=== PATIENT | female | born 1995 | race Caucasian/White ===

== ENCOUNTER 2020-08-03 07:58 | Inpatient (IN) | payer BC, OTHER ==
[~2020-08-03 07:58] MED LIST: Lidocaine 1.5% with EPINEPHrine 1:200,000 5 ML Amp ONE
[2020-08-03] MEDS: Lactated Ringers 1,000 ML IV SCH ×2 (08:17→15:05)
[2020-08-03] MEDS ORDERED: Sodium Chloride 0.9% 10 ML Syringe FLUSH PRN (08:24)
[2020-08-03] MEDS ORDERED: Nalbuphine 10 MG/1 ML Vial IVPUSH PRN (08:24)
[2020-08-03] MEDS ORDERED: Lidocaine 1% 50 ML MDV INJECT ONE (08:24)
[2020-08-03] MEDS ORDERED: Oxytocin/Lactated Ringers 10 UNIT/1,000 ML BAG IV SCH ×2 (08:30)
[2020-08-03] MEDS ORDERED: fentaNYL 100 MCG/2 ML SDV EPIDUR PRN (12:02)
[2020-08-03] MEDS ORDERED: ePHEDrine 50 MG/ML SDV IVPUSH PRN (12:02)
[2020-08-03] MEDS ORDERED: Bupivacaine/fentaNYL/NS 100 ML Bag EPIDUR PRN (12:02)
[2020-08-03] MEDS ORDERED: diphenhydrAMINE 50 MG/ML SDV IVPUSH PRN (12:02)
--- NOTE | 2020-08-03 12:27 | PCM.LDHP ---
L&D History of Present Illness - General Date of Service: 08/03/20 Admit Problem/Dx: Patient Status Order with Admit Dx/Problem 08/03/20 08:26 Patient Status [ADT] Routine Admission Diagnosis/Problem Admission Diagnosis/Problem Source of Information: Patient History Limitations: Reports: No Limitations - History of Present Illness Introduction:: Patient is a 24 y/o at 37 0/7 wks who presents for IOL for preeclampsia. Doing well since seen in clinic. No headaches, vision changes, etc. - Related Data Allergies/Adverse Reactions: Allergies Allergy/AdvReac Type Severity Reaction Status Date / Time No Known Allergies Allergy Verified 08/03/20 08:21 Home Medications: Home Meds 105/Iron/Folic AC/Dha [Prena1 True Combo Pack] 1 each PO DAILY 08/03/20 [History] Past Medical History - Past Health History Medical/Surgical History: Denies Medical/Surgical History [employer] History: Reports: : 1 Para: 0 LMP (Approximate): Social & Family History - Family History Family Medical History: Unobtainable - Tobacco Use Tobacco Use Status *Q: Never Tobacco User - Alcohol Use Alcohol Use History: No - Recreational Drug Use Recreational Drug Use: No H&P Review of Systems - Review of Systems: Review Of Systems: See Below General: Reports: No Symptoms Pulmonary: Reports: No Symptoms Cardiovascular: Reports: No Symptoms Gastrointestinal: Reports: No Symptoms Genitourinary: Reports: No Symptoms Musculoskeletal: Reports: No Symptoms Psychiatric: Reports: No Symptoms Neurological: Reports: No Symptoms L&D Exam - Exam Exam: See Below - Vital Signs Vital Signs: Last Vital Signs Temp 36.5 C 08/03/20 08:00 Pulse 57 L 08/03/20 08:00 Resp 16 08/03/20 08:00 BP 150/98 H 08/03/20 08:00 Pulse Ox 98 08/03/20 08:00 Weight: 70.67 kg - OB Specific Contraction Intensity: Irritability Movement: Active Heart Tones: Present Heart Tones per Min: 140 Heart Rate (FHR) Variability: Moderate (6-25 bmp) Presentation: Vertex - Zuniga Score Zuniga Score Cervix Position: Posterior Zuniga Score Consistency: Soft Zuniga Score Effacement: 51-70% Zuniga Score Dilation: 1-2 cm (2-3 cm) Zuniga Score 's Station: -2 Zuniga Score Total: 6 - Exam General: Alert, Oriented, Cooperative Lungs: Clear to Auscultation, Normal Respiratory Effort Cardiovascular: Regular Rate, Regular Rhythm GI/Abdominal Exam: Soft, Non-Tender Genitourinary: Normal external exam Extremities: Normal Inspection Skin: Warm, Dry, Intact - Patient Data Lab Results Last 24 hrs: Laboratory Results - last 24 hr 08/03/20 08/03/20 08/03/20 Range/Units 07:53 08:41 08:41 WBC 4.82 (3.98-10.04) K/mm3 RBC 3.71 L (3.98-5.22) M/mm3 Hgb 10.7 L (11.2-15.7) gm/dl Hct 33.5 L (34.1-44.9) % MCV 90.3 (79.4-94.8) fl MCH 28.8 (25.6-32.2) pg MCHC 31.9 L (32.2-35.5) g/dl RDW Std Deviation 41.3 (36.4-46.3) fL Plt Count 173 L (182-369) K/mm3 MPV 12.1 (9.4-12.3) fl Neut % (Auto) 63.3 (34.0-71.1) % Lymph % (Auto) 26.6 (19.3-51.7) % [place] % (Auto) 8.9 (4.7-12.5) % Eos % (Auto) 0.8 (0.7-5.8) Baso % (Auto) 0.4 (0.1-1.2) % Neut # (Auto) 3.05 (1.56-6.13) K/mm3 Lymph # (Auto) 1.28 (1.18-3.74) K/mm3 [place] # (Auto) 0.43 H (0.24-0.36) K/mm3 Eos # (Auto) 0.04 (0.04-0.36) K/mm3 Baso # (Auto) 0.02 (0.01-0.08) K/mm3 Creatinine (0.55-1.02) mg/dL Est Cr Clr Drug Dosing mL/min Estimated GFR (MDRD) (>60) mL/min AST (15-37) U/L ALT (14-59) U/L Ur Random Creatinine (30.0-125.0) mg/dL U Random Total Protein (0.0-11.8) mg/dL Protein/Creatinin Ratio (0-149) mg/g SARS-CoV-2 RNA (RICCO) Negative (NEGATIVE) Blood Type A POSITIVE Gel Antibody Screen Negative 08/03/20 08/03/20 08/03/20 Range/Units 08:41 08:41 10:00 WBC (3.98-10.04) K/mm3 RBC (3.98-5.22) M/mm3 Hgb (11.2-15.7) gm/dl Hct (34.1-44.9) % MCV (79.4-94.8) fl MCH (25.6-32.2) pg MCHC (32.2-35.5) g/dl RDW Std Deviation (36.4-46.3) fL Plt Count (182-369) K/mm3 MPV (9.4-12.3) fl Neut % (Auto) (34.0-71.1) % Lymph % (Auto) (19.3-51.7) % [place] % (Auto) (4.7-12.5) % Eos % (Auto) (0.7-5.8) Baso % (Auto) (0.1-1.2) % Neut # (Auto) (1.56-6.13) K/mm3 Lymph # (Auto) (1.18-3.74) K/mm3 [place] # (Auto) (0.24-0.36) K/mm3 Eos # (Auto) (0.04-0.36) K/mm3 Baso # (Auto) (0.01-0.08) K/mm3 Creatinine 0.6 (0.55-1.02) mg/dL Est Cr Clr Drug Dosing 141.81 mL/min Estimated GFR (MDRD) > 60 (>60) mL/min AST 19 (15-37) U/L ALT 21 (14-59) U/L Ur Random Creatinine 136.9 H (30.0-125.0) mg/dL U Random Total Protein 38.0 H (0.0-11.8) mg/dL Protein/Creatinin Ratio 277.6 H (0-149) mg/g SARS-CoV-2 RNA (RICCO) (NEGATIVE) Blood Type Gel Antibody Screen Result Diagrams: 08/03/20 08:41 08/03/20 08:41 - Problem List (1) 37 weeks gestation of SNOMED Code(s): 12067652 ICD Code: Z3A.37 - 37 WEEKS GESTATION OF Status: Acute Current Visit: Yes (2) Preeclampsia SNOMED Code(s): 989067692 ICD Code: O14.90 - UNSPECIFIED PRE-ECLAMPSIA, UNSPECIFIED TRIMESTER Status: Acute Current Visit: Yes Qualifiers: Trimester: third trimester Qualified Code(s): O14.93 - Unspecified pre- eclampsia, third trimester Problem List Initiated/Reviewed/Updated: Yes Orders Last 24hrs: Active Orders 24 hr Category Date Time Status Patient Status [ADT] Routine ADT 08/03/20 08:26 Active Activity as Tolerated [RC] PFP Care 08/03/20 08:25 Active Communication Order [RC] ASDIRECTED Care 08/03/20 08:25 Active Communication Order [RC] ASDIRECTED Care 08/03/20 12:03 Active Cooling Warming Measures [RC] ASDIRECTED Care 08/03/20 12:03 Active Non Stress Test [RC] PER UNIT ROUTINE Care 08/03/20 08:25 Active Notify Provider [RC] ASDIRECTED Care 08/03/20 12:02 Active Notify Provider [RC] ASDIRECTED Care 08/03/20 12:03 Active Notify Provider [RC] PFP Care 08/03/20 08:25 Active Notify Provider [RC] PRN Care 08/03/20 08:25 Active Oxygen Therapy [RC] ASDIRECTED Care 08/03/20 12:03 Active Peripheral IV Care [RC] . DIRECTED Care 08/03/20 08:26 Active Pulse Oximetry [RC] ASDIRECTED Care 08/03/20 12:03 Active Pump Management, Intrathecal [RC] ASDIRECTED Care 08/03/20 08:29 Active Urinary Catheter Assessment [RC] ASDIRECTED Care 08/03/20 08:24 Active Vital Signs [RC] PER UNIT ROUTINE Care 08/03/20 08:25 Active Vital Signs [RC] Q1H Care 08/03/20 12:03 Active Regular Diet [DIET] Diet 08/03/20 Breakfast Active HEP C VIRUS AB [REF] Stat Lab 08/03/20 08:41 Received PATIENT RETYPE [BBK] Routine Lab 08/03/20 09:40 Ordered RAPID PLASMA REAGIN,RPR [CHEM] Routine Lab 08/03/20 08:41 Received Bupivacaine/fentaNYL/NS [fentaNYL/Bupivacaine/NS 2 MCG- Med 08/03/20 12:02 Active 0.125% 100 ML] 100 ml EPIDUR ASDIRECTED PRN Lactated Ringers [Ringers, Lactated] 1,000 ml Med 08/03/20 08:30 Active IV ASDIRECTED Nalbuphine [Nubain] Med 08/03/20 08:24 Active 10 mg IVPUSH Q2H PRN Oxytocin/Lactated Ringers [Pitocin in LR 10 Units/1,000 Med 08/03/20 08:30 Active ML] 10 unit in 1,000 ml IV .CONTINUOUS Oxytocin/Lactated Ringers [Pitocin in LR 10 Units/1,000 Med 08/03/20 08:30 Active ML] 10 unit in 1,000 ml IV TITRATE Sodium Chloride 0.9% [Saline Flush] Med 08/03/20 08:24 Active 10 ml FLUSH ASDIRECTED PRN diphenhydrAMINE [Benadryl] Med 08/03/20 12:02 Active 25 mg IVPUSH Q6H PRN ePHEDrine [ePHEDrine sulfate] Med 08/03/20 12:02 Active 5 mg IVPUSH ASDIRECTED PRN fentaNYL [Sublimaze] Med 08/03/20 12:02 Active 100 mcg EPIDUR Q3H PRN Electronic Heart Tones Ext w TOCO [WOMSER] Oth 08/03/20 08:25 Ordered Routine Electronic Heart Tones Internal [WOMSER] Per Unit Oth 08/03/20 08:25 Ordered Routine Peripheral IV Insertion Adult [OM.PC] Routine Oth 08/03/20 08:25 Ordered Resuscitation Status Routine Resus Stat 08/03/20 08:24 Ordered Medication Orders Diphenhydramine HCl (Diphenhydramine 50 Mg/Ml Sdv) 25 mg IVPUSH Q6H PRN PRN Reason: pruritis Ephedrine Sulfate (Ephedrine 50 Mg/Ml Sdv) 5 mg IVPUSH ASDIRECTED PRN PRN Reason: Hypotension Fentanyl (Fentanyl 100 Mcg/2 Ml Sdv) 100 mcg EPIDUR Q3H PRN PRN Reason: Pain Fentanyl/Bupivacaine HCl (Bupivacaine/Fentanyl/Ns 100 Ml Bag) 100 ml EPIDUR ASDIRECTED PRN PRN Reason: Pain Oxytocin/Lactated Ringer's (Pitocin In Lr 10 Units/1,000 Ml) 10 unit in 1,000 mls @ 100 mls/hr IV .CONTINUOUS HANNAH Oxytocin/Lactated Ringer's (Pitocin In Lr 10 Units/1,000 Ml) 10 unit in 1,000 mls @ 12 mls/hr IV TITRATE HANNAH; Protocol Last Titration: 08/03/20 11:05 Dose: 10 munits/min, 60 mls/hr Documented by: Titration: 08/03/20 10:30 Dose: 8 munits/min, 48 mls/hr Documented by: Titration: 08/03/20 10:00 Dose: 6 munits/min, 36 mls/hr Documented by: Titration: 08/03/20 08:52 Dose: 4 munits/min, 24 mls/hr Documented by: Admin: 08/03/20 08:17 Dose: 2 munits/min, 12 mls/hr Documented by: BRENDA Lactated Ringer's (Ringers, Lactated) 1,000 mls @ 100 mls/hr IV ASDIRECTED HANNAH Last Admin: 08/03/20 08:17 Dose: 100 mls/hr Documented by: BRENDA Nalbuphine HCl (Nalbuphine 10 Mg/1 Ml Vial) 10 mg IVPUSH Q2H PRN PRN Reason: Pain Sodium Chloride (Sodium Chloride 0.9% 10 Ml Syringe) 10 ml FLUSH ASDIRECTED PRN PRN Reason: Keep Vein Open Assessment/Plan Comment:: * Labs to be done * GBS negative * Pitocin and AROM for IOL * Pain management per patient preference * Anticipate
--- NOTE | 2020-08-03 12:28 | PCM.PNLD ---
Labor Progress Note - VS & Meds Vital Signs: Last Vital Signs Temp 36.5 C 08/03/20 08:00 Pulse 57 L 08/03/20 08:00 Resp 16 08/03/20 08:00 BP 150/98 H 08/03/20 08:00 Pulse Ox 98 08/03/20 08:00 Active Medications: Current Medications Diphenhydramine HCl (Diphenhydramine 50 Mg/Ml Sdv) 25 mg IVPUSH Q6H PRN PRN Reason: pruritis Ephedrine Sulfate (Ephedrine 50 Mg/Ml Sdv) 5 mg IVPUSH ASDIRECTED PRN PRN Reason: Hypotension Fentanyl (Fentanyl 100 Mcg/2 Ml Sdv) 100 mcg EPIDUR Q3H PRN PRN Reason: Pain Fentanyl/Bupivacaine HCl (Bupivacaine/Fentanyl/Ns 100 Ml Bag) 100 ml EPIDUR ASDIRECTED PRN PRN Reason: Pain Oxytocin/Lactated Ringer's (Pitocin In Lr 10 Units/1,000 Ml) 10 unit in 1,000 mls @ 100 mls/hr IV .CONTINUOUS HANNAH Oxytocin/Lactated Ringer's (Pitocin In Lr 10 Units/1,000 Ml) 10 unit in 1,000 mls @ 12 mls/hr IV TITRATE HANNAH; Protocol Last Titration: 08/03/20 11:05 Dose: 10 munits/min, 60 mls/hr Documented by: Lactated Ringer's (Ringers, Lactated) 1,000 mls @ 100 mls/hr IV ASDIRECTED HANNAH Last Admin: 08/03/20 08:17 Dose: 100 mls/hr Documented by: Nalbuphine HCl (Nalbuphine 10 Mg/1 Ml Vial) 10 mg IVPUSH Q2H PRN PRN Reason: Pain Sodium Chloride (Sodium Chloride 0.9% 10 Ml Syringe) 10 ml FLUSH ASDIRECTED PRN PRN Reason: Keep Vein Open Discontinued Medications Lidocaine HCl (Lidocaine 1% 50 Ml Mdv) 50 ml INJECT ONETIME ONE Stop: 08/03/20 08:25 - Uterine Contractions Uterine Monitoring Mode: External Blairs Contraction Intensity: Moderate Uterine Resting Tone: Soft - Monitoring Monitor Mode: External Ultrasound Heart Rate (FHR) Baseline: 140 Heart Rate (FHR) Variability: Moderate (6-25 bmp) Accelerations: Present, 15x15 Decelerations: None Strip Review: Category I - Vaginal Exam Dilation (cm): 3-4 Effacement (Percent): 75 Station: -1 Cervical Position: Posterior - Labor Progress (Free Text) Labor Progress: Doing well. Pitocin at 10. AROM performed. BP's mild range. Doing well otherwise
--- NOTE | 2020-08-03 13:39 | PCM.PREANE ---
Preanesthetic Assessment - Procedure Proposed Procedure: Continuous labor epidural - Anesthesia/Transfusion/Family Hx Anesthesia History: No Prior Anesthesia Transfusion History: No Prior Transfusion(s) - Review of Systems General: No Symptoms Pulmonary: No Symptoms Cardiovascular: No Symptoms Gastrointestinal: No Symptoms Neurological: No Symptoms Other: Reports: None - Physical Assessment Vital Signs: Last Vital Signs Temp 97.7 F 08/03/20 08:00 Pulse 57 L 08/03/20 08:00 Resp 16 08/03/20 08:00 BP 150/98 H 08/03/20 08:00 Pulse Ox 98 08/03/20 08:00 Height: 1.7 m Weight: 70.67 kg ASA Class: 2 Mental Status: Alert & Oriented x3 Airway Class: Mallampati = 1 Dentition: Reports: Normal Dentition Thyro-Mental Finger Breadths: 3 Mouth Opening Finger Breadths: 3 ROM/Head Extension: Full Lungs: Clear to Auscultation, Normal Respiratory Effort Cardiovascular: Regular Rate, Regular Rhythm - Lab Values: Laboratory Last Values WBC 4.82 K/mm3 (3.98-10.04) 08/03/20 08:41 RBC 3.71 M/mm3 (3.98-5.22) L 08/03/20 08:41 Hgb 10.7 gm/dl (11.2-15.7) L 08/03/20 08:41 Hct 33.5 % (34.1-44.9) L 08/03/20 08:41 MCV 90.3 fl (79.4-94.8) 08/03/20 08:41 MCH 28.8 pg (25.6-32.2) 08/03/20 08:41 MCHC 31.9 g/dl (32.2-35.5) L 08/03/20 08:41 RDW Std Deviation 41.3 fL (36.4-46.3) 08/03/20 08:41 Plt Count 173 K/mm3 (182-369) L 08/03/20 08:41 MPV 12.1 fl (9.4-12.3) 08/03/20 08:41 Neut % (Auto) 63.3 % (34.0-71.1) 08/03/20 08:41 Lymph % (Auto) 26.6 % (19.3-51.7) 08/03/20 08:41 [place] % (Auto) 8.9 % (4.7-12.5) 08/03/20 08:41 Eos % (Auto) 0.8 (0.7-5.8) 08/03/20 08:41 Baso % (Auto) 0.4 % (0.1-1.2) 08/03/20 08:41 Neut # (Auto) 3.05 K/mm3 (1.56-6.13) 08/03/20 08:41 Lymph # (Auto) 1.28 K/mm3 (1.18-3.74) 08/03/20 08:41 [place] # (Auto) 0.43 K/mm3 (0.24-0.36) H 08/03/20 08:41 Eos # (Auto) 0.04 K/mm3 (0.04-0.36) 08/03/20 08:41 Baso # (Auto) 0.02 K/mm3 (0.01-0.08) 08/03/20 08:41 Creatinine 0.6 mg/dL (0.55-1.02) 08/03/20 08:41 Est Cr Clr Drug Dosing 141.81 mL/min 08/03/20 08:41 Estimated GFR (MDRD) > 60 mL/min (>60) 08/03/20 08:41 AST 19 U/L (15-37) 08/03/20 08:41 ALT 21 U/L (14-59) 08/03/20 08:41 Ur Random Creatinine 136.9 mg/dL (30.0-125.0) H 08/03/20 10:00 U Random Total Protein 38.0 mg/dL (0.0-11.8) H 08/03/20 10:00 Protein/Creatinin Ratio 277.6 mg/g (0-149) H 08/03/20 10:00 SARS-CoV-2 RNA (RICCO) Negative (NEGATIVE) 08/03/20 07:53 Blood Type A POSITIVE 08/03/20 08:41 Gel Antibody Screen Negative 08/03/20 08:41 - Allergies Allergies/Adverse Reactions: Allergies Allergy/AdvReac Type Severity Reaction Status Date / Time No Known Allergies Allergy Verified 08/03/20 08:21 - Acknowledgements Anesthesia Type Planned: Epidural Pt an Appropriate Candidate for the Planned Anesthesia: Yes Alternatives and Risks of Anesthesia Discussed w Pt/Guardian: Yes Pt/Guardian Understands and Agrees with Anesthesia Plan: Yes PreAnesthesia Questionnaire CALL CENTER AGENT History: Reports: - SUBSTANCE USE Tobacco Use Status *Q: Never Tobacco User Tobacco Use Within Last Twelve Months: No Recreational Drug Use History: No - HOME MEDS Home Medications: Home Meds 105/Iron/Folic AC/Dha [Prena1 True Combo Pack] 1 each PO DAILY 08/03/20 [History] - CURRENT (IN HOUSE) MEDS Current Meds: Current Medications Diphenhydramine HCl (Diphenhydramine 50 Mg/Ml Sdv) 25 mg IVPUSH Q6H PRN PRN Reason: pruritis Ephedrine Sulfate (Ephedrine 50 Mg/Ml Sdv) 5 mg IVPUSH ASDIRECTED PRN PRN Reason: Hypotension Fentanyl (Fentanyl 100 Mcg/2 Ml Sdv) 100 mcg EPIDUR Q3H PRN PRN Reason: Pain Fentanyl/Bupivacaine HCl (Bupivacaine/Fentanyl/Ns 100 Ml Bag) 100 ml EPIDUR ASDIRECTED PRN PRN Reason: Pain Oxytocin/Lactated Ringer's (Pitocin In Lr 10 Units/1,000 Ml) 10 unit in 1,000 mls @ 100 mls/hr IV .CONTINUOUS HANNAH Oxytocin/Lactated Ringer's (Pitocin In Lr 10 Units/1,000 Ml) 10 unit in 1,000 mls @ 12 mls/hr IV TITRATE HANNAH; Protocol Last Titration: 08/03/20 11:05 Dose: 10 munits/min, 60 mls/hr Documented by: Lactated Ringer's (Ringers, Lactated) 1,000 mls @ 100 mls/hr IV ASDIRECTED HANNAH Last Admin: 08/03/20 08:17 Dose: 100 mls/hr Documented by: Nalbuphine HCl (Nalbuphine 10 Mg/1 Ml Vial) 10 mg IVPUSH Q2H PRN PRN Reason: Pain Sodium Chloride (Sodium Chloride 0.9% 10 Ml Syringe) 10 ml FLUSH ASDIRECTED PRN PRN Reason: Keep Vein Open Discontinued Medications Lidocaine HCl (Lidocaine 1% 50 Ml Mdv) 50 ml INJECT ONETIME ONE Stop: 08/03/20 08:25
[2020-08-03] MEDS ORDERED: Misoprostol 200 MCG Tab ONE (18:54)
[2020-08-03] MEDS ORDERED: Misoprostol 200 MCG Tab PO STA (19:24)
--- NOTE | 2020-08-03 19:26 | PCM.DEL ---
L & D Note - General Info Date of Service: 08/03/20 - Delivery Note Labor: Induced by ARM, Induced by Oxytocin Delivery Outcome: Livebirth Infant Delivery Method: Spontaneous Vaginal Delivery-Single Infant Delivery Mode: Spontaneous Presentation: Left Occiput Anterior (DONNA) Nuchal Cord: None Anesthesia Type: Epidural Amniotic Fluid Description: Clear Episiotomy Type: None Laceration: 1st Degree, Periurethral Suture type: Vicryl Suture size: 2-0 Placenta: Intact, Spontaneous Cord: 3 Vessels Estimated Blood Loss: 300 Resuscitation Needed: Yes : Bulb Syringe, Stimulated, Warmed, [place] Used, Warmer Used Delivery Comments (Free Text/Narrative):: Patient found to be complete and began pushing. With maternal pushing effort head delivered from DONNA presentation. No nuchal cord present. With gentle downward traction the shoulders and body delivered. placed on maternal abdomen. Cord clamped and cut. Cord blood obtained. Placenta allowed time to separate and expelled intact. Inspection of perineum showed shallow bilateral periurethral lacerations. These were repaired with running 2- 0 Vicryl sutures. Patient with a few gushes of blood noted at this time. Given 600 mcg of buccal Cytotec with good response - General Info Date of Service: 08/03/20 - Patient Data Vitals - Most Recent: Last Vital Signs Temp 36.5 C 08/03/20 08:00 Pulse 57 L 08/03/20 08:00 Resp 16 08/03/20 08:00 BP 150/98 H 08/03/20 08:00 Pulse Ox 98 08/03/20 08:00 Weight - Most Recent: 70.67 kg I&O - Last 24 Hours: Intake & Output 08/03/20 08/03/20 08/03/20 06:59 14:59 22:59 Intake Total 360 1000 Output Total 800 Balance 360 200 - Problem List & Annotations (1) 37 weeks gestation of SNOMED Code(s): 54984605 Code(s): Z3A.37 - 37 WEEKS GESTATION OF Status: Acute Current Visit: Yes (2) Preeclampsia SNOMED Code(s): 770412724 Code(s): O14.90 - UNSPECIFIED PRE-ECLAMPSIA, UNSPECIFIED TRIMESTER Status: Acute Current Visit: Yes Qualifiers: Trimester: third trimester Qualified Code(s): O14.93 - Unspecified pre- eclampsia, third trimester (3) Vaginal delivery SNOMED Code(s): 150439919 Code(s): O80 - ENCOUNTER FOR FULL-TERM UNCOMPLICATED DELIVERY Status: Acute Current Visit: Yes - Problem List Review Problem List Initiated/Reviewed/Updated: Yes - My Orders Last 24 Hours: My Active Orders 08/03/20 Breakfast Regular Diet [DIET] 08/03/20 08:24 Urinary Catheter Assessment [RC] ASDIRECTED Nalbuphine [Nubain] 10 mg IVPUSH Q2H PRN Sodium Chloride 0.9% [Saline Flush] 10 ml FLUSH ASDIRECTED PRN Resuscitation Status Routine 08/03/20 08:25 Activity as Tolerated [RC] PFP Communication Order [RC] ASDIRECTED Non Stress Test [RC] PER UNIT ROUTINE Notify Provider [RC] PFP Notify Provider [RC] PRN Vital Signs [RC] PER UNIT ROUTINE Electronic Heart Tones Ext w TOCO [WOMSER] Routine Electronic Heart Tones Internal [WOMSER] Per Unit Routine Peripheral IV Insertion Adult [OM.PC] Routine 08/03/20 08:26 Patient Status [ADT] Routine Peripheral IV Care [RC] . DIRECTED 08/03/20 08:29 Pump Management, Intrathecal [RC] ASDIRECTED 08/03/20 08:30 Lactated Ringers [Ringers, Lactated] 1,000 ml IV ASDIRECTED Oxytocin/Lactated Ringers [Pitocin in LR 10 Units/1,000 ML] 10 unit in 1,000 ml IV .CONTINUOUS Oxytocin/Lactated Ringers [Pitocin in LR 10 Units/1,000 ML] 10 unit in 1,000 ml IV TITRATE 08/03/20 08:41 HEP C VIRUS AB [REF] Stat RAPID PLASMA REAGIN,RPR [CHEM] Routine 08/03/20 09:40 PATIENT RETYPE [BBK] Routine 08/03/20 19:24 Patient Status Manage Transfer [TRANSFER] Routine miSOPROStoL [Cytotec] 600 mcg PO NOW STA - Assessment Assessment:: PPD#0 - Plan Plan:: * Routine cares * Close monitoring of BP's * Breast feeding * Discharge home in 2 days
[2020-08-03] MEDS ORDERED: Ibuprofen 600 MG Tab PO PRN (19:35)
[2020-08-03] MEDS ORDERED: Acetaminophen 325 MG Tab PO PRN (19:35)
[2020-08-03] MEDS ORDERED: Benzocaine/Menthol 20%-0.5% Spray 56 GM Canister TOP PRN (19:35)
[2020-08-03] MEDS: Witch Hazel Medicated Pads 40/Jar TOP PRN (21:52)
--- NOTE | 2020-08-04 07:03 | PCM.PNPP ---
- General Info Date of Service: 08/04/20 Functional Status: Reports: Pain Controlled, Tolerating Diet, Ambulating, Urinating - Review of Systems General: Reports: No Symptoms HEENT: Denies: Visual Changes Pulmonary: Reports: No Symptoms Cardiovascular: Reports: No Symptoms Gastrointestinal: Reports: No Symptoms Genitourinary: Reports: No Symptoms Neurological: Denies: Headache - Patient Data Vital Signs - Most Recent: Last Vital Signs Temp 37.2 C 08/04/20 01:44 Pulse 64 08/04/20 01:44 Resp 15 08/04/20 01:44 BP 132/86 08/04/20 01:44 Pulse Ox 96 08/04/20 01:44 Weight - Most Recent: 70.67 kg I&O - Last 24 Hours: Intake & Output 08/03/20 08/04/20 08/04/20 22:59 06:59 14:59 Intake Total 1000 Output Total 800 391 Balance 200 -391 Lab Results - Last 24 Hours: Laboratory Results - last 24 hr 08/03/20 08/03/20 08/03/20 Range/Units 07:53 08:41 08:41 WBC 4.82 (3.98-10.04) K/mm3 RBC 3.71 L (3.98-5.22) M/mm3 Hgb 10.7 L (11.2-15.7) gm/dl Hct 33.5 L (34.1-44.9) % MCV 90.3 (79.4-94.8) fl MCH 28.8 (25.6-32.2) pg MCHC 31.9 L (32.2-35.5) g/dl RDW Std Deviation 41.3 (36.4-46.3) fL Plt Count 173 L (182-369) K/mm3 MPV 12.1 (9.4-12.3) fl Neut % (Auto) 63.3 (34.0-71.1) % Lymph % (Auto) 26.6 (19.3-51.7) % [place] % (Auto) 8.9 (4.7-12.5) % Eos % (Auto) 0.8 (0.7-5.8) Baso % (Auto) 0.4 (0.1-1.2) % Neut # (Auto) 3.05 (1.56-6.13) K/mm3 Lymph # (Auto) 1.28 (1.18-3.74) K/mm3 [place] # (Auto) 0.43 H (0.24-0.36) K/mm3 Eos # (Auto) 0.04 (0.04-0.36) K/mm3 Baso # (Auto) 0.02 (0.01-0.08) K/mm3 Creatinine (0.55-1.02) mg/dL Est Cr Clr Drug Dosing mL/min Estimated GFR (MDRD) (>60) mL/min AST (15-37) U/L ALT (14-59) U/L Ur Random Creatinine (30.0-125.0) mg/dL U Random Total Protein (0.0-11.8) mg/dL Protein/Creatinin Ratio (0-149) mg/g RPR (NONREACTIVE) SARS-CoV-2 RNA (RICCO) Negative (NEGATIVE) Blood Type A POSITIVE Gel Antibody Screen Negative 08/03/20 08/03/20 08/03/20 Range/Units 08:41 08:41 08:41 WBC (3.98-10.04) K/mm3 RBC (3.98-5.22) M/mm3 Hgb (11.2-15.7) gm/dl Hct (34.1-44.9) % MCV (79.4-94.8) fl MCH (25.6-32.2) pg MCHC (32.2-35.5) g/dl RDW Std Deviation (36.4-46.3) fL Plt Count (182-369) K/mm3 MPV (9.4-12.3) fl Neut % (Auto) (34.0-71.1) % Lymph % (Auto) (19.3-51.7) % [place] % (Auto) (4.7-12.5) % Eos % (Auto) (0.7-5.8) Baso % (Auto) (0.1-1.2) % Neut # (Auto) (1.56-6.13) K/mm3 Lymph # (Auto) (1.18-3.74) K/mm3 [place] # (Auto) (0.24-0.36) K/mm3 Eos # (Auto) (0.04-0.36) K/mm3 Baso # (Auto) (0.01-0.08) K/mm3 Creatinine 0.6 (0.55-1.02) mg/dL Est Cr Clr Drug Dosing 141.81 mL/min Estimated GFR (MDRD) > 60 (>60) mL/min AST 19 (15-37) U/L ALT 21 (14-59) U/L Ur Random Creatinine (30.0-125.0) mg/dL U Random Total Protein (0.0-11.8) mg/dL Protein/Creatinin Ratio (0-149) mg/g RPR Non-reactive (NONREACTIVE) SARS-CoV-2 RNA (RICCO) (NEGATIVE) Blood Type Gel Antibody Screen 08/03/20 Range/Units 10:00 WBC (3.98-10.04) K/mm3 RBC (3.98-5.22) M/mm3 Hgb (11.2-15.7) gm/dl Hct (34.1-44.9) % MCV (79.4-94.8) fl MCH (25.6-32.2) pg MCHC (32.2-35.5) g/dl RDW Std Deviation (36.4-46.3) fL Plt Count (182-369) K/mm3 MPV (9.4-12.3) fl Neut % (Auto) (34.0-71.1) % Lymph % (Auto) (19.3-51.7) % [place] % (Auto) (4.7-12.5) % Eos % (Auto) (0.7-5.8) Baso % (Auto) (0.1-1.2) % Neut # (Auto) (1.56-6.13) K/mm3 Lymph # (Auto) (1.18-3.74) K/mm3 [place] # (Auto) (0.24-0.36) K/mm3 Eos # (Auto) (0.04-0.36) K/mm3 Baso # (Auto) (0.01-0.08) K/mm3 Creatinine (0.55-1.02) mg/dL Est Cr Clr Drug Dosing mL/min Estimated GFR (MDRD) (>60) mL/min AST (15-37) U/L ALT (14-59) U/L Ur Random Creatinine 136.9 H (30.0-125.0) mg/dL U Random Total Protein 38.0 H (0.0-11.8) mg/dL Protein/Creatinin Ratio 277.6 H (0-149) mg/g RPR (NONREACTIVE) SARS-CoV-2 RNA (RICCO) (NEGATIVE) Blood Type Gel Antibody Screen Med Orders - Current: Current Medications Acetaminophen (Acetaminophen 325 Mg Tab) 650 mg PO Q4H PRN PRN Reason: mild pain or fever Benzocaine/Menthol (Benzocaine/Menthol 20%-0.5% [place] 56 Gm Canister) 0 gm TOP ASDIRECTED PRN PRN Reason: Perineal Comfort Measure Last Admin: 08/03/20 21:52 Dose: 1 canister Documented by: Ibuprofen (Ibuprofen 600 Mg Tab) 600 mg PO Q4H PRN PRN Reason: Mild pain or fever Last Admin: 08/04/20 00:23 Dose: 600 mg Documented by: Ivy Lombardi (Ivy Lombardi Medicated Pads 40/Jar) 1 pad TOP ASDIRECTED PRN PRN Reason: Perineal Comfort Measure Last Admin: 08/03/20 21:52 Dose: 1 can Documented by: Discontinued Medications Diphenhydramine HCl (Diphenhydramine 50 Mg/Ml Sdv) 25 mg IVPUSH Q6H PRN PRN Reason: pruritis Ephedrine Sulfate (Ephedrine 50 Mg/Ml Sdv) 5 mg IVPUSH ASDIRECTED PRN PRN Reason: Hypotension Fentanyl (Fentanyl 100 Mcg/2 Ml Sdv) 100 mcg EPIDUR Q3H PRN PRN Reason: Pain Last Admin: 08/03/20 14:16 Dose: 100 mcg Documented by: Fentanyl/Bupivacaine HCl (Bupivacaine/Fentanyl/Ns 100 Ml Bag) 100 ml EPIDUR ASDIRECTED PRN PRN Reason: Pain Last Admin: 08/03/20 14:16 Dose: 100 ml Documented by: Oxytocin/Lactated Ringer's (Pitocin In Lr 10 Units/1,000 Ml) 10 unit in 1,000 mls @ 100 mls/hr IV .CONTINUOUS HANNAH Oxytocin/Lactated Ringer's (Pitocin In Lr 10 Units/1,000 Ml) 10 unit in 1,000 mls @ 12 mls/hr IV TITRATE HANNAH; Protocol Last Titration: 08/03/20 18:04 Dose: 6 munits/min, 36 mls/hr Documented by: Lactated Ringer's (Ringers, Lactated) 1,000 mls @ 100 mls/hr IV ASDIRECTED HANNAH Last Admin: 08/03/20 15:05 Dose: 100 mls/hr Documented by: Lidocaine HCl (Lidocaine 1% 50 Ml Mdv) 50 ml INJECT ONETIME ONE Stop: 08/03/20 08:25 Misoprostol (Misoprostol 200 Mcg Tab) Confirm Administered Dose 600 mcg .ROUTE .STK-MED ONE Stop: 08/03/20 18:55 Last Admin: 08/03/20 19:05 Dose: 600 mcg Documented by: Misoprostol (Misoprostol 200 Mcg Tab) 600 mcg PO NOW STA Stop: 08/03/20 19:25 Nalbuphine HCl (Nalbuphine 10 Mg/1 Ml Vial) 10 mg IVPUSH Q2H PRN PRN Reason: Pain Sodium Chloride (Sodium Chloride 0.9% 10 Ml Syringe) 10 ml FLUSH ASDIRECTED PRN PRN Reason: Keep Vein Open - Interaction Disposition, : in Room with Family Interaction: Holding Infant Feeding: Attempted ; Nursed Fair/Poor Support Person: Significant Other - Recovery Exam Fundal Tone: Firm Fundal Level: At Umbilicus Fundal Placement: Midline Lochia Amount: Small Lochia Color: Rubra/Red Episiotomy/Laceration: Approximated Bladder Status: Voiding Urinary Elimination: Voided - Exam General: Alert, Oriented, Cooperative GI/Abdominal Exam: Soft, Non-Tender Extremities: Normal Inspection Skin: Warm, Dry, Intact - Problem List & Annotations (1) 37 weeks gestation of SNOMED Code(s): 68794341 Code(s): Z3A.37 - 37 WEEKS GESTATION OF Status: Acute Current Visit: Yes (2) Preeclampsia SNOMED Code(s): 955626270 Code(s): O14.90 - UNSPECIFIED PRE-ECLAMPSIA, UNSPECIFIED TRIMESTER Status: Acute Current Visit: Yes Qualifiers: Trimester: third trimester Qualified Code(s): O14.93 - Unspecified pre- eclampsia, third trimester (3) Vaginal delivery SNOMED Code(s): 971824476 Code(s): O80 - ENCOUNTER FOR FULL-TERM UNCOMPLICATED DELIVERY Status: Acute Current Visit: Yes - Problem List Review Problem List Initiated/Reviewed/Updated: Yes - My Orders Last 24 Hours: My Active Orders 08/03/20 Breakfast Regular Diet [DIET] 08/03/20 08:24 Resuscitation Status Routine 08/03/20 08:41 HEP C VIRUS AB [REF] Stat 08/03/20 19:35 Acetaminophen [TylenoL] 650 mg PO Q4H PRN Benzocaine/Menthol [Dermoplast Pain Relief [place]] See Dose Instructions TOP ASDIRECTED PRN Ibuprofen [Motrin] 600 mg PO Q4H PRN witch Nnamdi [Tucks] 1 pad TOP ASDIRECTED PRN Heat Therapy [OM.PC] PRN 08/03/20 19:35 Activity as Tolerated [RC] PER UNIT ROUTINE Vital Signs [RC] Q2HR Assess Lochia [WOMSER] Per Unit Routine Assess Uterine Involution [WOMSER] Per Unit Routine Breast Pump [WOMSER] Per Unit Routine Ice Therapy [OM.PC] Per Unit Routine Perineal Care [OM.PC] Per Unit Routine Peripheral IV Discontinue [OM.PC] Routine Sitz Bath [OM.PC] Per Unit Routine 08/04/20 19:35 Heat Therapy [OM.PC] PRN - Assessment Assessment:: PPD#1 - Plan Plan:: * Routine cares * Monitor BP's closely * Breast feeding * Discharge home tomorrow
--- NOTE | 2020-08-04 08:25 | PCM48HPAN ---
Post Anesthesia Note - EVALUATION WITHIN 48HRS OF ANESTHETIC Vital Signs in Normal Range: Yes Patient Participated in Evaluation: Yes Respiratory Function Stable: Yes Airway Patent: Yes Cardiovascular Function Stable: Yes Hydration Status Stable: Yes Pain Control Satisfactory: Yes Nausea and Vomiting Control Satisfactory: Yes Mental Status Recovered: Yes Vital Signs: Last Vital Signs Temp 37.2 C 08/04/20 01:44 Pulse 64 08/04/20 01:44 Resp 15 08/04/20 01:44 BP 140/93 H 08/04/20 04:00 Pulse Ox 96 08/04/20 01:44
--- NOTE | 2020-08-05 07:19 | PCM.DCSUM1 ---
Discharge Summary - Discharge Data Discharge Date: 08/05/20 Discharge Disposition: Home, Self-Care 01 Condition: Good - Referral to Home Health Primary Care Physician: Socorro Dasilva MD - Discharge Diagnosis/Problem(s) (1) 37 weeks gestation of SNOMED Code(s): 72870219 ICD Code: Z3A.37 - 37 WEEKS GESTATION OF Status: Acute Current Visit: Yes (2) Preeclampsia SNOMED Code(s): 886574769 ICD Code: O14.90 - UNSPECIFIED PRE-ECLAMPSIA, UNSPECIFIED TRIMESTER Status: Acute Current Visit: Yes Qualifiers: Trimester: third trimester Qualified Code(s): O14.93 - Unspecified pre- eclampsia, third trimester (3) Vaginal delivery SNOMED Code(s): 881919816 ICD Code: O80 - ENCOUNTER FOR FULL-TERM UNCOMPLICATED DELIVERY Status: Acute Current Visit: Yes - Patient Summary/Data Complications: None Consults: None Recommended Follow-up Testing/Procedures: Follow up in 1 week for BP check and 3 weeks for check Hospital Course: 24 y/o at 37 0/7 wks who presented for IOL for induction for preeclampsia without severe features. This was done with pitocin and AROM. She progressed well to complete dilation. Underwent an uncomplicated . See delivery note. did well and was discharged home on PPD#2 - Patient Instructions Diet: Regular Diet as Tolerated Activity: As Tolerated Activity, Other: Pelvic Rest for 6 weeks Driving: May Drive Today Showering/Bathing: May Shower Notify Provider of: Fever, Increased Pain, Swelling and Redness, Drainage, Nausea and/or Vomiting - Discharge Plan *PRESCRIPTION DRUG MONITORING PROGRAM REVIEWED*: No *COPY OF PRESCRIPTION DRUG MONITORING REPORT IN PATIENT ÁNGELA: No Home Medications: Home Meds 105/Iron/Folic AC/Dha [Prena1 True Combo Pack] 1 each PO DAILY 08/03/20 [History] Acetaminophen [Tylenol] 650 mg PO Q4H PRN tablet 08/05/20 [Rx] Ibuprofen [Motrin] 600 mg PO Q4H PRN tablet 08/05/20 [Rx] Referrals: Socorro Dasilva MD [Primary Care Provider] - (1 week for RN BP check 3 weeks for check ) - Discharge Summary/Plan Comment DC Time >30 min.: No - Patient Data Vitals - Most Recent: Last Vital Signs Temp 36.3 C 08/04/20 20:07 Pulse 69 08/04/20 20:07 Resp 16 08/04/20 20:07 BP 122/87 08/05/20 00:03 Pulse Ox 99 08/04/20 20:07 Weight - Most Recent: 70.67 kg Med Orders - Current: Current Medications Acetaminophen (Acetaminophen 325 Mg Tab) 650 mg PO Q4H PRN PRN Reason: mild pain or fever Benzocaine/Menthol (Benzocaine/Menthol 20%-0.5% [place] 56 Gm Canister) 0 gm TOP ASDIRECTED PRN PRN Reason: Perineal Comfort Measure Last Admin: 08/03/20 21:52 Dose: 1 canister Documented by: Ibuprofen (Ibuprofen 600 Mg Tab) 600 mg PO Q4H PRN PRN Reason: Mild pain or fever Last Admin: 08/04/20 00:23 Dose: 600 mg Documented by: Ivy Lombardi (Ivy Kirkel Medicated Pads 40/Jar) 1 pad TOP ASDIRECTED PRN PRN Reason: Perineal Comfort Measure Last Admin: 08/03/20 21:52 Dose: 1 can Documented by: Discontinued Medications Diphenhydramine HCl (Diphenhydramine 50 Mg/Ml Sdv) 25 mg IVPUSH Q6H PRN PRN Reason: pruritis Ephedrine Sulfate (Ephedrine 50 Mg/Ml Sdv) 5 mg IVPUSH ASDIRECTED PRN PRN Reason: Hypotension Fentanyl (Fentanyl 100 Mcg/2 Ml Sdv) 100 mcg EPIDUR Q3H PRN PRN Reason: Pain Last Admin: 08/03/20 14:16 Dose: 100 mcg Documented by: Fentanyl/Bupivacaine HCl (Bupivacaine/Fentanyl/Ns 100 Ml Bag) 100 ml EPIDUR ASDIRECTED PRN PRN Reason: Pain Last Admin: 08/03/20 14:16 Dose: 100 ml Documented by: Oxytocin/Lactated Ringer's (Pitocin In Lr 10 Units/1,000 Ml) 10 unit in 1,000 mls @ 100 mls/hr IV .CONTINUOUS HANNAH Oxytocin/Lactated Ringer's (Pitocin In Lr 10 Units/1,000 Ml) 10 unit in 1,000 mls @ 12 mls/hr IV TITRATE HANNAH; Protocol Last Titration: 08/03/20 18:04 Dose: 6 munits/min, 36 mls/hr Documented by: Lactated Ringer's (Ringers, Lactated) 1,000 mls @ 100 mls/hr IV ASDIRECTED HANNAH Last Admin: 08/03/20 15:05 Dose: 100 mls/hr Documented by: Lidocaine HCl (Lidocaine 1% 50 Ml Mdv) 50 ml INJECT ONETIME ONE Stop: 08/03/20 08:25 Last Admin: 08/04/20 07:26 Dose: Not Given Documented by: Lidocaine/Epinephrine (Lidocaine 1.5% With Epinephrine 1:200,000 5 Ml Amp) 5 ml .ROUTE .STK-MED ONE Stop: 08/03/20 00:01 Misoprostol (Misoprostol 200 Mcg Tab) Confirm Administered Dose 600 mcg .ROUTE .STK-MED ONE Stop: 08/03/20 18:55 Last Admin: 08/03/20 19:05 Dose: 600 mcg Documented by: Misoprostol (Misoprostol 200 Mcg Tab) 600 mcg PO NOW STA Stop: 08/03/20 19:25 Last Admin: 08/04/20 07:26 Dose: Not Given Documented by: Nalbuphine HCl (Nalbuphine 10 Mg/1 Ml Vial) 10 mg IVPUSH Q2H PRN PRN Reason: Pain Sodium Chloride (Sodium Chloride 0.9% 10 Ml Syringe) 10 ml FLUSH ASDIRECTED PRN PRN Reason: Keep Vein Open
--- NOTE | 2020-08-05 07:19 | PCM.PNPP ---
- General Info Date of Service: 08/05/20 Functional Status: Reports: Pain Controlled, Tolerating Diet, Ambulating, Urinating - Review of Systems General: Reports: No Symptoms HEENT: Denies: Headaches, Visual Changes Pulmonary: Reports: No Symptoms Cardiovascular: Reports: No Symptoms Gastrointestinal: Reports: No Symptoms Genitourinary: Reports: No Symptoms Musculoskeletal: Reports: No Symptoms - Patient Data Vital Signs - Most Recent: Last Vital Signs Temp 36.3 C 08/04/20 20:07 Pulse 69 08/04/20 20:07 Resp 16 08/04/20 20:07 BP 122/87 08/05/20 00:03 Pulse Ox 99 08/04/20 20:07 Weight - Most Recent: 70.67 kg Med Orders - Current: Current Medications Acetaminophen (Acetaminophen 325 Mg Tab) 650 mg PO Q4H PRN PRN Reason: mild pain or fever Benzocaine/Menthol (Benzocaine/Menthol 20%-0.5% [place] 56 Gm Canister) 0 gm TOP ASDIRECTED PRN PRN Reason: Perineal Comfort Measure Last Admin: 08/03/20 21:52 Dose: 1 canister Documented by: Ibuprofen (Ibuprofen 600 Mg Tab) 600 mg PO Q4H PRN PRN Reason: Mild pain or fever Last Admin: 08/04/20 00:23 Dose: 600 mg Documented by: Iyv Lombardi (Ivy Lombardi Medicated Pads 40/Jar) 1 pad TOP ASDIRECTED PRN PRN Reason: Perineal Comfort Measure Last Admin: 08/03/20 21:52 Dose: 1 can Documented by: Discontinued Medications Diphenhydramine HCl (Diphenhydramine 50 Mg/Ml Sdv) 25 mg IVPUSH Q6H PRN PRN Reason: pruritis Ephedrine Sulfate (Ephedrine 50 Mg/Ml Sdv) 5 mg IVPUSH ASDIRECTED PRN PRN Reason: Hypotension Fentanyl (Fentanyl 100 Mcg/2 Ml Sdv) 100 mcg EPIDUR Q3H PRN PRN Reason: Pain Last Admin: 08/03/20 14:16 Dose: 100 mcg Documented by: Fentanyl/Bupivacaine HCl (Bupivacaine/Fentanyl/Ns 100 Ml Bag) 100 ml EPIDUR ASDIRECTED PRN PRN Reason: Pain Last Admin: 08/03/20 14:16 Dose: 100 ml Documented by: Oxytocin/Lactated Ringer's (Pitocin In Lr 10 Units/1,000 Ml) 10 unit in 1,000 mls @ 100 mls/hr IV .CONTINUOUS HANNAH Oxytocin/Lactated Ringer's (Pitocin In Lr 10 Units/1,000 Ml) 10 unit in 1,000 mls @ 12 mls/hr IV TITRATE HANNAH; Protocol Last Titration: 08/03/20 18:04 Dose: 6 munits/min, 36 mls/hr Documented by: Lactated Ringer's (Ringers, Lactated) 1,000 mls @ 100 mls/hr IV ASDIRECTED HANNAH Last Admin: 08/03/20 15:05 Dose: 100 mls/hr Documented by: Lidocaine HCl (Lidocaine 1% 50 Ml Mdv) 50 ml INJECT ONETIME ONE Stop: 08/03/20 08:25 Last Admin: 08/04/20 07:26 Dose: Not Given Documented by: Lidocaine/Epinephrine (Lidocaine 1.5% With Epinephrine 1:200,000 5 Ml Amp) 5 ml .ROUTE .STK-MED ONE Stop: 08/03/20 00:01 Misoprostol (Misoprostol 200 Mcg Tab) Confirm Administered Dose 600 mcg .ROUTE .STK-MED ONE Stop: 08/03/20 18:55 Last Admin: 08/03/20 19:05 Dose: 600 mcg Documented by: Misoprostol (Misoprostol 200 Mcg Tab) 600 mcg PO NOW STA Stop: 08/03/20 19:25 Last Admin: 08/04/20 07:26 Dose: Not Given Documented by: Nalbuphine HCl (Nalbuphine 10 Mg/1 Ml Vial) 10 mg IVPUSH Q2H PRN PRN Reason: Pain Sodium Chloride (Sodium Chloride 0.9% 10 Ml Syringe) 10 ml FLUSH ASDIRECTED PRN PRN Reason: Keep Vein Open - Infant Interaction Infant Disposition, : [place] in Room with Family Infant Interaction: Holding Feeding: Attempted ; Nursed Fair/Poor Support Person: Significant Other - Recovery Exam Fundal Tone: Firm Fundal Level: 1 Fingerbreadths Below Umbilicus Fundal Placement: Midline Lochia Amount: Scant Lochia Color: Rubra/Red Perineum Description: Other (see below) Other Perinuem Description: 1st degree laceration with repair Episiotomy/Laceration: Approximated Bladder Status: Voiding Urinary Elimination: Voided - Exam General: Alert, Oriented, Cooperative GI/Abdominal Exam: Soft, Non-Tender Extremities: Normal Inspection Skin: Warm, Dry, Intact - Problem List & Annotations (1) 37 weeks gestation of SNOMED Code(s): 11239409 Code(s): Z3A.37 - 37 WEEKS GESTATION OF Status: Acute Current Visit: Yes (2) Preeclampsia SNOMED Code(s): 286330349 Code(s): O14.90 - UNSPECIFIED PRE-ECLAMPSIA, UNSPECIFIED TRIMESTER Status: Acute Current Visit: Yes Qualifiers: Trimester: third trimester Qualified Code(s): O14.93 - Unspecified pre- eclampsia, third trimester (3) Vaginal delivery SNOMED Code(s): 316939141 Code(s): O80 - ENCOUNTER FOR FULL-TERM UNCOMPLICATED DELIVERY Status: Acute Current Visit: Yes - Problem List Review Problem List Initiated/Reviewed/Updated: Yes - My Orders Last 24 Hours: My Active Orders 08/04/20 19:35 Heat Therapy [OM.PC] PRN 08/05/20 07:18 Ready for Discharge [RC] PER UNIT ROUTINE - Assessment Assessment:: PPD#2 - Plan Plan:: * Routine cares * Monitor BP's closely, have been normal to mild range. Will need BP check in 1 week * Breast feeding * Discharge home today
[2020-08-05] MEDS: Witch Hazel Medicated Pads 40/Jar TOP PRN (11:26)
== END 2020-08-05 13:22 | disposition home or self-care (01) | DRG 560 ==
LOC: JD.OB 07:58 → OBSVTOIN 18:49 → JD.OB 18:50
PROVIDERS: ADMIT Obstetrics & Gynecology; ATTEND Obstetrics & Gynecology
PROC: 10E0XZZ Delivery of Products of Conception, External Approach (ICD-10-PCS; principal; 2020-08-03)
PROC: 10907ZC Drainage of Amniotic Fluid, Therapeutic from Products of Conception, Via Natural or Artificial Opening (ICD-10-PCS; 2020-08-03)
PROC: 3E033VJ Introduction of Other Hormone into Peripheral Vein, Percutaneous Approach (ICD-10-PCS; 2020-08-03)
PROC: 0HQ9XZZ Repair Perineum Skin, External Approach (ICD-10-PCS; 2020-08-03)
PROC: 3E0P7VZ Introduction of Hormone into Female Reproductive, Via Natural or Artificial Opening (ICD-10-PCS; 2020-08-03)
PROC: 3E0R3BZ Introduction of Anesthetic Agent into Spinal Canal, Percutaneous Approach (ICD-10-PCS; 2020-08-03)
PROC: 00HU33Z Insertion of Infusion Device into Spinal Canal, Percutaneous Approach (ICD-10-PCS; 2020-08-03)
DX: O14.04 Mild to moderate pre-eclampsia, complicating childbirth (principal); Z3A.37 37 weeks gestation of pregnancy; Z37.0 Single live birth; O70.0 First degree perineal laceration during delivery; Z20.822 Contact with and (suspected) exposure to COVID-19
CPT/HCPCS: 01967; 36415; 51702; 59025; 59409; 82565; 82570; 84156; 84450; 84460; 85025; 86592; 86803; 86850; 86900; 86901; A9270-GY; J2590; J3010; J7120; U0002